=== PATIENT | male | born 1975 | race Two or more races ===

== ENCOUNTER 2024-12-31 02:33 | Emergency (ER) | payer MEDICAID, SELFPAY ==
[2024-12-31 02:41] VITALS: BP 180/108; PULSE 77; RESP 18; TEMP 36.8; O2SAT 95
--- NOTE | 2024-12-31 02:48 | XR_ITS ---
Examination: CT abdomen and pelvis without contrast. Coronal 3-D reconstructions. Sagittal 2-D reconstructions. Date and time of exam:December 31, 2024, 0304 hours INDICATIONS: Right lower back pain and abdominal pain and vomiting beginning today CTDI: vol (mGy): 12.8 DLP: (mGycm): 939. Technique: Axial images of the abdomen have been obtained, 3 mm slice thickness Intravenous contrast material has not been administered. Low dose protocols were performed. One or more of the following dose reduction techniques were used; automated exposure control, adjustment of the mA and/or KV according to patient size, use of iterative reconstruction technique. Findings: Diffuse fatty infiltration throughout the liver No gallstones No pancreatic or adrenal mass Minimal right hydronephrosis secondary to 2.5 mm distal right ureterovesical junction calculus Normal appendix No bowel obstruction Contracted urinary bladder IMPRESSION: Minimal right hydronephrosis secondary to 2.5 mm distal right ureterovesical junction calculus
[2024-12-31 03:15] LABS: Basophils # (Auto) 0.1 Thou/mm3 (0.0-0.2); Basophils % (Auto) 0 % (0-2.5); Eosinophils # (Auto) 0.1 Thou/mm3 (0.0-0.5); Eosinophils % (Auto) 1 % (0-10); Hematocrit 54.4 % (41.0-53.0); Hemoglobin 18.2 g/dL (13.5-16.0); Immature Granulocytes Auto 0.04 Thou/mm3 (0.00-0.00); Lymphocytes # (Auto) 2.4 Thou/mm3 (1.0-4.8); Lymphocytes % (Auto) 20 % (10-50); Mean Corpuscular HGB Conc 33.5 g/dl (31.0-37.0); Mean Corpuscular Hemoglobin 30.8 pg (25.0-35.0); Mean Corpuscular Volume 92 fL (80-100); Monocytes # (Auto) 0.9 Thou/mm3 (0.0-0.8); Monocytes % (Auto) 7 % (0-12); Neutrophils # (Auto) 8.8 Thou/mm3 (1.8-7.7); Neutrophils % (Auto) 72 % (37-80); Nucleated Red Blood Cell # 0.00 Thou/mm3 (0.00-0.00); Nucleated Red Blood Cell % 0 /100 WBC (0); Platelet Count 165 Thou/mm3 (140-440); RDW Standard Deviation 45.0 fL (35.1-43.9); Red Blood Count 5.90 Miln/mm3 (4.50-5.90); White Blood Count 12.2 Thou/mm3 (3.8-10.6)
[2024-12-31] MEDS: SODIUM CHLORIDE 0.9% 1000 ML 1,000 ML 999 ML IV (03:24)
[2024-12-31] MEDS: KETOROLAC INJ 30 MG/ML VIAL IVP (03:25)
[2024-12-31] MEDS: ONDANSETRON INJ 2 MG/ML INJ 2 ML 4 MG IVP (03:25)
[2024-12-31] MEDS: MORPHINE SULF INJ 10 MG/ML VIAL 4 MG IVP (03:26)
[2024-12-31 03:34] LABS: Alanine Aminotransferase 41 U/L (10-49); Albumin, Serum 4.5 gm/dL (3.5-5.0); Albumin/Globulin Ratio 1.4 (1.2-2.2); Alkaline Phosphatase 94 U/L (46-116); Anion Gap 10 (7-16); Aspartate Amino Transferase 36 U/L (0-34); BUN/Creatinine Ratio 11 Ratio (12-20); Bilirubin,Total 1.4 mg/dL (0.3-1.2); Blood Urea Nitrogen 14 mg/dL (9-23); Calcium 9.1 mg/dL (8.3-10.6); Calcium (Corrected) 9.1 mg/dL (8.5-10.1); Carbon Dioxide 25.2 mMol/L (20.0-31.0); Chloride 106 mMol/L (98-107); Creatinine (Component) 1.3 mg/dL (0.6-1.3); Globulin 3.2 gm/dL (2.3-3.5); Glucose 151 mg/dL (74-106); Lipase 41 U/L (12-53); Osmolality,Calculated 284 (275-295); Potassium 4.4 mMol/L (3.4-5.1); Sodium 141 mMol/L (136-145); Total Protein 7.7 gm/dL (5.7-8.2); eGFR > 60 See Note
--- NOTE | 2024-12-31 04:17 | PRELIM_ITS ---
CT scan of the abdomen and pelvis without intravenous contrast (axial sections with sagittal and coronal reformats) December 31, 2024 0304 hours Clinical History: kidney stone Comparison: None. Findings: The lung bases are clear. The liver, gallbladder, pancreas, spleen, and adrenals are unremarkable on this noncontrast study. Right UVJ stone measuring 0.3 cm, the stone is not visible on the bus transportation manager image, mild right hydroureteronephrosis. No evidence of bowel obstruction. No evidence of appendicitis. There is no mesenteric or retroperitoneal adenopathy. The urinary bladder is nondistended, limited evaluation. There is no free fluid or free air. The osseous structures are unremarkable. Impression: Right UVJ stone associated with hydroureteronephrosis. Report Electronically Signed By: Yuri Nagy 12/31/2024 4:17:00 AM [EST]
[2024-12-31 04:37] LABS: Collection Type, Urine Clean Catch
[2024-12-31 04:48] LABS: Amorphous Crystals,Urine Present (Absent); Bacteria,Urine Rare; Bilirubin,Urine Negative (Negative); Blood,Urine 3+ (Negative); Clarity,Urine Turbid (Clear/Hazy); Color,Urine Yellow (Lt Yel-Yel); Glucose, Urine Negative (Negative); Ketones,Urine Negative (Negative); Leukocyte Esterase,Urine Negative (Negative); Nitrite,Urine Negative (Negative); PH,Urine 5.5 (5.0-7.0); Protein,Urine 1+ (Neg - Trace); RBC,Urine 251 /hpf (0-3); Specific Gravity,Urine 1.028 (1.001-1.035); Squamous Epithelial Cell,Urine < 1 /hpf (0-5); Urobilinogen,Urine Negative mg/dL (0.0-1.0); WBC,Urine 4 /hpf (0-5)
[2024-12-31] MEDS: TAMSULOSIN HCL 0.4 MG CAPSULE PO (04:59)
--- NOTE | 2024-12-31 05:00 | PD.EDABDPN ---
ED Abdominal Pain RME/HPI General Chief Complaint: Back Pain/Injury Stated complaint: RIGHT LOWER BACK PAIN Time seen by provider: 12/31/24 02:37 Arrival date/time: 12/31/24 02:33 This is a case of a 49-year-old male with history of kidney stone came in in the emergency room due to right flank pain for 1 day radiating to the right side of the abdomen with nausea vomiting worsening symptoms this patient decided to sought consult here in the emergency room Limitations: no limitations Related Data Previous Rx's ?Medication ?Instructions ?Recorded ondansetron HCl 4 mg tablet 4 mg PO Q6H PRN nausea and 04/09/20 (Zofran) vomiting #30 tabs cephalexin 500 mg tablet 500 mg PO QID 10 days #40 tabs 12/31/24 hydrocodone 5 mg-acetaminophen 325 1 tab PO Q6H PRN pain #16 tabs 12/31/24 mg tablet ondansetron 4 mg disintegrating 4 mg PO Q8H PRN nausea and 12/31/24 tablet vomiting #20 tabs tamsulosin 0.4 mg capsule (Flomax) 0.4 mg PO QDAY 10 days #10 caps 12/31/24 Allergies Allergy/AdvReac Type Severity Reaction Status Date / Time No Known Allergies Allergy Verified 12/31/24 02:34 Review of Systems Review of Systems Systems Reviewed: All systems reviewed, normal except as documented Constitutional Constitutional: Reports system reviewed and no additional complaints, except as documented, Denies body ache(s), Denies chills, Denies fatigue and Denies fever(s) Cardiovascular Cardiovascular: Reports system reviewed and no additional complaints, except as documented and Reports as per HPI Respiratory Respiratory: Reports system reviewed and no additional complaints, except as documented and Reports as per HPI Gastrointestinal Gastrointestinal: Reports system reviewed and no additional complaints, except as documented, Reports as per HPI, Reports abdominal pain, Denies loose stools, Reports nausea and Reports vomiting Genitourinary Genitourinary: Reports system reviewed and no additional complaints, except as documented, Reports as per HPI, Denies difficulty urinating, Denies difficulty with ejaculations, Denies dysuria, Denies erectile dysfunction, Denies flank pain, Denies genital lesions, Denies genital pain, Reports hematospermia, Denies hematuria, Denies nocturia, Denies oliguria, Reports painful ejaculations, Denies urinary frequency, Denies urinary hesitancy, Denies urinary incontinence and Denies urinary urgency Neurologic Neurologic: Reports system reviewed and no additional complaints, except as documented and Reports as per HPI Endocrine Endocrine: Denies fatigue Past Medical History Past Medical History CARDIAC: Negative Congestive Heart Failure RESPIRATORY: Negative Chronic Obstructive Pulmonary Disease (COPD) GENITOURINARY: Negative Renal Disease ENDOCRINE: Negative Diabetes Mellitus Type 1 or Diabetes Mellitus Type 2 Social History SMOKING STATUS: Never smoker ED Exam General Limitations: Present no limitations General appearance: Present alert, in no apparent distress and other (Patient is awake alert oriented not in distress nontoxic looking well-hydrated well-nourished) Head Head exam: Present atraumatic, normocephalic and normal inspection Eye Eye exam: Present normal appearance, PERRL and EOMI ENT ENT exam: Present normal exam, normal oropharynx and mucous membranes moist Neck Neck exam: Present normal inspection, full ROM and trachea midline; Absent tenderness Chest Chest inspection: Present normal inspection and symmetric chest wall rise Respiratory Respiratory exam: Present normal lung sounds bilaterally; Absent respiratory distress, wheezes, stridor, accessory muscle use or prolonged expiratory phase Cardiovascular Cardiovascular exam: Present regular rate, normal rhythm and normal heart sounds; Absent tachycardia, irregular rhythm or diastolic murmur Abdominal Exam Abdominal exam: Present soft, tenderness (Mild tenderness on the right flank), normal bowel sounds and other (No CVA tenderness); Absent distention, guarding, rebound, rigidity, diminished bowel sounds, hyperactive bowel sounds, hypoactive bowel sounds, organomegaly, obturator sign, Dillon's sign, Rovsing's sign or tenderness at McBurney's Point Extremities Exam Extremities exam: Present normal inspection and full ROM Back Exam Back exam: Present normal inspection and full ROM Neurological Exam Neurological exam: Present alert, oriented X3, CN II-XII intact, normal gait and reflexes normal; Absent motor sensory deficit Psychiatric Psychiatric exam: Present normal affect and normal mood Skin Skin exam: Present warm, dry, intact and normal color Course Quality Measures none Orders Category Date Time Status Insert IV STAT Care 12/31/24 03:[address] abdomen pelvis wo con Stat Exams 12/31/24 02:48 Taken CBC Stat Lab 12/31/24 02:56 Completed Comprehensive Metabolic Panel Stat Lab 12/31/24 02:56 Completed Lipase Stat Lab 12/31/24 02:56 Completed Urinalysis Stat Lab 12/31/24 04:24 Completed Ketorolac Inj [Toradol Inj] Med 12/31/24 02:48 Discontinued 30 mg IVP X1 ONE Morphine Inj Med 12/31/24 02:49 Discontinued 4 mg IVP Q30M ONE Ondansetron Inj [Zofran Inj] Med 12/31/24 02:48 Discontinued 4 mg IVP X1 ONE Sodium Chloride 0.9% 1000 ml [Ns] 1,000 ml Med 12/31/24 02:48 Discontinued IV 999 mls/hr Tamsulosin HCl [Flomax] Med 12/31/24 04:54 Discontinued 0.4 mg PO X1 ONE Vital Signs Vital signs: Vital Signs Temperature 98.2 F 12/31/24 02:41 Pulse Rate 77 12/31/24 02:41 Respiratory Rate 18 12/31/24 02:41 Blood Pressure 180/108 H 12/31/24 02:41 Pulse Oximetry (%) 95 12/31/24 02:41 Oxygen Delivery Method Room Air 12/31/24 02:41 Patient is afebrile nontachycardic nontachypneic BP initially was 180/108 after giving morphine and Toradol patient pain was improved and resolved latest BP was 145/75 not hypoxic oxygen saturation is 95% in room Abdominal Pain MDM MDM Narrative MDM Narrative:: This is a case of a 49-year-old male with history of kidney stone came in in the emergency room due to right flank pain for 1 day radiating to the right side of the abdomen with nausea vomiting worsening symptoms this patient decided to sought consult here in the emergency room physical examination patient is awake alert oriented not in distress nontoxic looking well-hydrated well-nourished abdominal exam is benign nonsurgical soft normal active bowel sounds mild tenderness in the right flank no guarding no rebound no rigidity negative psoas negative straight or negative Rovsing's negative Anabel's negative Dillon sign negative CVA tenderness no bladder distention or tenderness blood test showed mild leukocytosis WBC is 12,000 no anemia platelet is normal kidney and liver function is normal no electrolyte imbalance lipase is normal patient urinalysis shows blood in the urine but no WBC nor nitrates in the urine CT scan showed a stone 0.3 cm at [facility] with hydroureteronephrosis patient was given a bolus of normal saline morphine Toradol Zofran and Flomax after 1 hour patient pain was improved and resolved at this point patient will follow-up with PCP to be referred to urologist for further evaluation and treatment of ureteral stone with hydroureteronephrosis the importance to see the specialist was also advised with the patient which the patient understood very well the discharge instruction he is also well-informed to return in the emergency room immediately for any worsening symptoms or any emergent concern Patient was discharged with comfortable condition walking with stable gait. Patient verbalized no further complains explained diagnosis and answered patient question. Patient is comfortable with the proposed management plan including the need to follow up with his/her primary care physician and any specialist if applicable Discussed patient for any urgent condition or worsening sx, He/She needed to go to emergency room immediately or call 911. Patient acknowledge the responsibility to follow up as instructed and to monitor her/his symptoms. For any persistence of the symptoms for more than 3-5 days return precaution advised. Discussed the result of the test and was given printed discharge instruction Patient data External records reviewed:: [facility] previous records Clinical information provided by:: patient Social determinants that could affect healthcare access:: none Patient has the following chronic illnesses:: None How is presenting disease/condition affected by chronic disease/condition?: no chronic disease Evaluation data The following diagnostics were reviewed and interpreted by me:: lab results and radiology exam(s) Lab and/or radiology exams considered but not ordered:: Reviewed Interpretation Summary: Reviewed Medications / Prescriptions Medications or Prescriptions considered but not ordered:: Given Medication administrations:: Medication Administration History Discontinued Medications Sodium Chloride (Ns) 1,000 mls @ 999 mls/hr IV .Q1H1M ONE Stop: 12/31/24 03:48 Last Infusion: 12/31/24 04:05 Dose: Infused Documented By: Admin: 12/31/24 03:24 Dose: 999 mls/hr Documented By: BD Ketorolac Tromethamine (Ketorolac Inj 30 Mg/Ml Vial) 30 mg IVP X1 ONE Stop: 12/31/24 02:49 Last Admin: 12/31/24 03:25 Dose: 30 mg Documented By: BD Morphine Sulfate (Morphine Sulf Inj 10 Mg/Ml Vial) 4 mg IVP Q30M ONE Stop: 12/31/24 02:50 Last Admin: 12/31/24 03:26 Dose: 4 mg Documented By: BD Ondansetron HCl (Ondansetron Inj 2 Mg/Ml Inj 2 Ml) 4 mg IVP X1 ONE; Protocol Stop: 12/31/24 02:49 Last Admin: 12/31/24 03:25 Dose: 4 mg Documented By: JOSIE Tamsulosin HCl (Tamsulosin Hcl 0.4 Mg Capsule) 0.4 mg PO X1 ONE Stop: 12/31/24 04:55 Last Admin: 12/31/24 04:59 Dose: 0.4 mg Documented By: BD Given Consultations Consultation(s) initiated? (list below): No Diagnosis Differential diagnosis abdominal pain: abdominal pain, acute appendicitis, calculus of kidney and diverticulitis Most likely diagnosis given after review of the tests above:: Ureteral stone Admission Indicated Admission indicated?: not indicated Explain why admission is indicated or not indicated:: Not indicated Admission Request Was there a request for admission?: No Admission Attestation Admission request attestation: Not indicated Disposition Plan Disposition Plan: Discharge Discharge Attestation Discharge Attestation: The patient and all family members were given an opportunity to ask questions and understood the discharge instructions. Discharge instructions specifically effects, indications for sooner follow up or return to the emergency department, and the expected course of current diagnosis. Patient condition: Stable Discharge Plan Plan Patient Disposition: HOME (Self Care) Patient condition on transfer: Stable Prescriptions/Referrals Prescriptions/Med Rec: New hydrocodone-acetaminophen 5-325 mg tablet 1 tab PO Q6H MDD max 4 tabs per day PRN (Reason: pain) Qty: 16 0RF ondansetron 4 mg tablet,disintegrating 4 mg PO Q8H PRN (Reason: nausea and vomiting) Qty: 20 0RF tamsulosin [Flomax] 0.4 mg capsule 0.4 mg PO QDAY 10 Days Qty: 10 0RF cephalexin 500 mg tablet 500 mg PO QID 10 Days Qty: 40 0RF No Action ondansetron HCl [Zofran] 4 mg tablet 4 mg PO Q6H PRN (Reason: nausea and vomiting) Qty: 30 0RF Referrals: [facility] [Outside] - 01/01/25 (Follow-up with urology for further evaluation and treatment of your ureteral stone with hydroureteronephrosis) Problem List Clinical Impression: Flank pain, Ureteral stone, Hydroureteronephrosis Patient/Caregiver Discharge Instructions Education Materials: Kidney Stones Your Evaluation, Understanding Hydronephrosis, ED Flank Pain, Uncertain Cause Additional Instructions: Follow-up with your primary care physician in 2 days for reevaluation and to be referred to urologist for further evaluation and treatment of your ureteral stone and hydroureteronephrosis it is very important to see the specialist for further evaluation and treatment worsening symptoms or any emergent concern return to the emergency room immediately or call 911 take your medication as directed increase water intake keep hydrated Pedialyte Gatorade for hydration Print Language: Egyptian Stand Alone Forms: Deidra Award Info., Patient Portal Info Letter PA/CARTOON DESIGNER Supervising Physician PA/CARTOON DESIGNER Supervising Physician: DR miller
== END 2024-12-31 05:05 | disposition home or self-care (01) ==
PROVIDERS: Nurse Practitioner Family; Emergency Provider Emergency Medicine
DX: N13.2 Hydronephrosis with renal and ureteral calculous obstruction (principal)
CPT/HCPCS: 36415; 74176; 80053; 81001; 83690; 85025; 96361; 96374; 96375; 99283; J1885; J2270; J2405; J7030; A9270